=== PATIENT | female | born 1990 | race Caucasian/White ===

== ENCOUNTER → 2017-04-12 | Outpatient (CLI) | payer SELFPAY ==
[~2017-04-12] MED LIST: CATHETER FLUSH 10 ML SYR IV PRN; IOHEXOL 350 MG/ML 100 ML (OMNIPAQUE 350) VIAL IV ONE; NS 100 ML (IVPB) BAG IV ONE
--- NOTE | 2017-04-12 15:38 | Diagnostic Imaging Report ---
PROCEDURE: CT head with and without contrast. TECHNIQUE: Multiple contiguous axial images were obtained through the brain before and after the administration of intravenous contrast. INDICATION: Right vision loss. COMPARISON: There are no prior studies available for comparison. FINDINGS: There is no mass, shift of the midline, or hemorrhage to suggest an acute intracranial abnormality. There is no abnormal enhancement on the postcontrast series to indicate a neoplastic or infectious process either. There is no sign of an aneurysm of the [place], and there is no hemodynamically significant stenosis of the visualized intracranial arterial circulation. The ventricles are not abnormally dilated. The bone windows show no evidence for a fracture or for a destructive lesion. The orbits are symmetrical and within normal limits. The sinuses, where visualized, are generally clear. In the scalp overlying the left frontoparietal bone near the vertex of the skull, there is a 1.3 x 0.8 cm partially calcified soft tissue density. Most likely, this represents a sebaceous cyst. IMPRESSION: 1. There is no evidence for an acute intracranial abnormality. 2. There is no abnormal enhancement to suggest a neoplastic or infectious process. 3. There is no evidence for an aneurysm of the [place]. There is no hemodynamically significant stenosis identified either. Dictated on workstation # [id number]
== END ==
LOC: RAD 14:48
PROVIDERS: ATTEND Internal Medicine
DX: H93.01 Transient ischemic deafness (principal); H57.09 Other anomalies of pupillary function; H54.61 Unqualified visual loss, right eye, normal vision left eye
CPT/HCPCS: 70470

== ENCOUNTER 2017-06-01 14:35 | Emergency (ER) | payer OTHER ==
[~2017-06-01] VITALS: Ht 177.8 cm; Wt 81.6 kg
[2017-06-01 15:09] LABS: BASOPHILS # (AUTO) 0.2 10^3/uL (0.0-0.1); BASOPHILS % (AUTO) 2 % (0-10); EOSINOPHILS # (AUTO) 1.2 10^3/uL (0.0-0.3); EOSINOPHILS % (AUTO) 11 % (0-10); HEMATOCRIT 42 % (35-52); HEMOGLOBIN 14.6 G/DL (11.5-16.0); LYMPHOCYTES # (AUTO) 2.2 X 10^3 (1.0-4.0); LYMPHOCYTES % (AUTO) 20 % (12-44); MEAN CORPUSCULAR HEMOGLOBIN 30 PG (25-34); MEAN CORPUSCULAR HGB CONC 35 G/DL (32-36); MEAN CORPUSCULAR VOLUME 87 FL (80-99); MEAN PLATELET VOLUME 12.1 FL (7.4-10.4); MONOCYTES # (AUTO) 0.5 X 10^3 (0.0-1.0); MONOCYTES % (AUTO) 5 % (0-12); NEUTROPHILS # (AUTO) 6.6 X 10^3 (1.8-7.8); NEUTROPHILS % (AUTO) 63 % (42-75); PLATELET COUNT 193 10^3/uL (130-400); RED BLOOD COUNT 4.84 10^6/uL (4.35-5.85); WHITE BLOOD COUNT 10.6 10^3/uL (4.3-11.0)
[2017-06-01 15:23] LABS: INR 1.1 (0.8-1.4); PROTHROMBIN TIME PATIENT 13.8 SEC (12.2-14.7)
[2017-06-01 15:28] LABS: ALANINE AMINOTRANSFERASE 18 U/L (0-55); ALBUMIN 4.5 GM/DL (3.2-4.5); ALKALINE PHOSPHATASE 72 U/L (40-136); BILIRUBIN,TOTAL 0.5 MG/DL (0.1-1.0); BUN/CREATININE RATIO 13; CALCIUM 9.5 MG/DL (8.5-10.1); CARBON DIOXIDE 26 MMOL/L (21-32); CHLORIDE 106 MMOL/L (98-107); GFR ESTIMATED > 60; GLUCOSE 93 MG/DL (70-105); MAGNESIUM 2.1 MG/DL (1.8-2.4); POTASSIUM 3.5 MMOL/L (3.6-5.0); SODIUM 140 MMOL/L (135-145); TOTAL PROTEIN 7.3 GM/DL (6.4-8.2)
--- NOTE | 2017-06-01 15:36 | ED Cardiac General ---
History of Present Illness General Chief Complaint: Cardiac/General Problems Stated Complaint: HR 185 Nursing Triage Note: TO ROOM REPORTS FOR YEARS HAS HAD A FAST HR THAT WOULD COME AND GO. TODAY IT DID NOT GO AWAY. ON ADMIT MONITOR SVT RATE OF 160. Source: patient Exam Limitations: no limitations History of Present Illness Date Seen by Provider: Jun 01, 2017 Time Seen by Provider: 15:00 Initial Comments To ER with reports of heart rate 185 at home area and she felt poorly and checked her fit bit and noticed her heart beat to be in the 180s. She had a little shortness of breath. She states that she has intermittently had these sensations before but they usually resolve after a coughing fit but without other treatment after about 10 minutes. She's never had this evaluated. Severity: moderate NTG SL BATTERY HAND: No ASA po BATTERY HAND: No Associated Systoms: No Chest Pain; Cough; No Nausea/Vomiting Allergies and Home Medications Allergies Coded Allergies: No Allergy Information Available (Unverified , 04/12/17) Patient Home Medication List Home Medication List Reviewed: Yes Review of Systems Constitutional: see HPI EENTM: No Symptoms Reported Respiratory: No Symptoms Reported Cardiovascular: See HPI, Chest Pain Gastrointestinal: See HPI Genitourinary: No Symptoms Reported Musculoskeletal: no symptoms reported Skin: no symptoms reported Psychiatric/Neurological: No Symptoms Reported Endocrine: No Symptoms Reported Past Rltlyvt-Gzvwxz-Ytsfug Hx Patient Social History Alcohol Use: Occasionally Uses Recreational Drug Use: No Smoking Status: Never a Smoker Recent Foreign Travel: No Contact w/Someone Who Travel: No Recent Infectious Disease Expo: No Past Medical History Surgeries: Yes (SPINAL CORRECTION) Section, Gallbladder, Tonsillectomy Respiratory: No Cardiac: No Neurological: No Genitourinary: No Gastrointestinal: No Musculoskeletal: No Endocrine: No HEENT: No Cancer: No Psychosocial: No Integumentary: No Physical Exam Vital Signs Vital Signs - First Documented 06/01/17 14:35 Temp 98.0 Pulse 160 Resp 18 B/P (MAP) 120/43 (68) Pulse Ox 100 O2 Delivery Room Air Capillary Refill : Less Than 3 Seconds General Appearance: No Apparent Distress, WD/WN, Other (otherwise well- appearing but she is in fact tachycardic narrow complex with a rate of 150. Her blood pressure was 130/80. No ectopy. While starting IV she was asked to perform a Valsalva maneuver by attempting to blow the plunger out on a 10 cc syringe. Her heart rate went up to 210 and then converted to sinus rhythm at 85. ) HEENT: PERRL/EOMI, TMs Normal Neck: Full Range of Motion, Normal Inspection Respiratory: No Accessory Muscle Use, No Respiratory Distress Cardiovascular: Regular Rate, Rhythm, Normal Peripheral Pulses Gastrointestinal: Non Tender, Soft Neurologic/Psychiatric: Alert, Oriented x3 Skin: Normal Color, Warm/Dry Progress/Results/Core Measures Lab Results Laboratory Tests Test 06/01/17 15:02 06/01/17 16:00 Range/Units White Blood Count 10.6 4.3-11.0 10^3/uL Red Blood Count 4.84 4.35-5.85 10^6/uL Hemoglobin 14.6 11.5-16.0 G/DL Hematocrit 42 35-52 % Mean Corpuscular Volume 87 80-99 FL Mean Corpuscular Hemoglobin 30 25-34 PG Mean Corpuscular Hemoglobin Concent 35 32-36 G/DL Red Cell Distribution Width 12.0 10.0-14.5 % Platelet Count 193 130-400 10^3/uL Mean Platelet Volume 12.1 H 7.4-10.4 FL Neutrophils (%) (Auto) 63 42-75 % Lymphocytes (%) (Auto) 20 12-44 % Monocytes (%) (Auto) 5 0-12 % Eosinophils (%) (Auto) 11 H 0-10 % Basophils (%) (Auto) 2 0-10 % Neutrophils # (Auto) 6.6 1.8-7.8 X 10^3 Lymphocytes # (Auto) 2.2 1.0-4.0 X 10^3 Monocytes # (Auto) 0.5 0.0-1.0 X 10^3 Eosinophils # (Auto) 1.2 H 0.0-0.3 10^3/uL Basophils # (Auto) 0.2 H 0.0-0.1 10^3/uL Prothrombin Time 13.8 12.2-14.7 SEC INR Comment 1.1 0.8-1.4 Activated Partial Thromboplast Time 29 24-35 SEC D-Dimer 0.46 0.00-0.49 UG/ML Sodium Level 140 135-145 MMOL/L Potassium Level 3.5 L 3.6-5.0 MMOL/L Chloride Level 106 98-107 MMOL/L Carbon Dioxide Level 26 21-32 MMOL/L Anion Gap 8 5-14 MMOL/L Blood Urea Nitrogen 9 7-18 MG/DL Creatinine 0.70 0.60-1.30 MG/DL Estimat Glomerular Filtration Rate > 60 BUN/Creatinine Ratio 13 Glucose Level 93 70-105 MG/DL Calcium Level 9.5 8.5-10.1 MG/DL Magnesium Level 2.1 1.8-2.4 MG/DL Total Bilirubin 0.5 0.1-1.0 MG/DL Aspartate Amino Transf (AST/SGOT) 16 5-34 U/L Alanine Aminotransferase (ALT/SGPT) 18 0-55 U/L Alkaline Phosphatase 72 40-136 U/L Myoglobin 15.5 10.0-92.0 NG/ML Troponin I < 0.30 <0.30 NG/ML Total Protein 7.3 6.4-8.2 GM/DL Albumin 4.5 3.2-4.5 GM/DL Thyroid Stimulating Hormone (TSH) 1.50 0.35-4.94 UIU/ML Free Thyroxine 1.02 0.70-1.48 NG/DL Urine Color YELLOW Urine Clarity CLEAR Urine pH 7 5-9 Urine Specific [place] 1.010 L 1.016-1.022 Urine Protein NEGATIVE NEGATIVE Urine Glucose (UA) NEGATIVE NEGATIVE Urine Ketones NEGATIVE NEGATIVE Urine Nitrite NEGATIVE NEGATIVE Urine Bilirubin NEGATIVE NEGATIVE Urine Urobilinogen NORMAL NORMAL MG/DL Urine Leukocyte Esterase NEGATIVE NEGATIVE Urine RBC (Auto) NEGATIVE NEGATIVE Urine RBC NONE /HPF Urine WBC NONE /HPF Urine Squamous Epithelial Cells RARE /HPF Urine Crystals NONE /LPF Urine Bacteria NONE /HPF Urine Casts NONE /LPF Urine Mucus NEGATIVE /LPF Urine Culture Indicated NO Urine Opiates Screen NEGATIVE NEGATIVE Urine Oxycodone Screen NEGATIVE NEGATIVE Urine Methadone Screen NEGATIVE NEGATIVE Urine Propoxyphene Screen NEGATIVE NEGATIVE Urine Barbiturates Screen NEGATIVE NEGATIVE Ur Tricyclic Antidepressants Screen NEGATIVE NEGATIVE Urine Phencyclidine Screen NEGATIVE NEGATIVE Urine Amphetamines Screen NEGATIVE NEGATIVE Urine Methamphetamines Screen NEGATIVE NEGATIVE Urine Benzodiazepines Screen NEGATIVE NEGATIVE Urine Cocaine Screen NEGATIVE NEGATIVE Urine Cannabinoids Screen NEGATIVE NEGATIVE My Orders Orders - LOS BATES [employer]PORATE COMMUNICATIONS MANAGER Cbc With Automated Diff (06/01/17 14:53) Magnesium (06/01/17 14:53) Chest 1 View, Ap/Pa Only (06/01/17 14:53) Ekg Tracing (06/01/17 14:53) Cardiac Profile 1 (06/01/17 14:53) Comprehensive Metabolic Panel (06/01/17 14:53) Myoglobin Serum (06/01/17 14:53) Protime With Inr (06/01/17 14:53) Partial Thromboplastin Time (06/01/17 14:53) O2 (06/01/17 14:53) Monitor-Rhythm Ecg Trace Only (06/01/17 14:53) Saline Lock/Iv-Start (06/01/17 14:53) Thyroid Stimulating Hormone (06/01/17 15:01) Free T4 (Free Thyroxine) (06/01/17 15:01) Fibrin Degradation Products (06/01/17 15:01) Ekg Tracing (06/01/17 15:09) Ua Culture If Indicated (06/01/17 15:44) Urine Bedside (06/01/17 15:44) Drug Screen Stat (Urine) (06/01/17 15:44) Vital Signs/I&O 06/01/17 06/01/17 14:35 16:46 Temp 98.0 Pulse 160 90 Resp 18 18 B/P (MAP) 120/43 (68) 125/82 Pulse Ox 100 99 O2 Delivery Room Air Room Air Blood Pressure Mean: 68 Diagonstic Imaging: Xray Plain Films/CT/US/NM/MRI: chest Comments NAME: [facility] REC#: [id number] PT STATUS: REG ER : 1990 PHYSICIAN: LOS BATES APRN ADMIT DATE: 06/01/17/ER Draft Date of Exam:06/01/17 CHEST 1 VIEW, AP/PA ONLY INDICATION: Tachycardia. TECHNIQUE: Single view chest 3:15 PM. CORRELATION STUDY: None FINDINGS: Posterior fusion hardware including transpedicular screws, laminar hooks and cerclage wires are present. There is rightward curvature of the thoracic spine. This does result in obscuration and distortion of the chest anatomy. Given this, the heart size and vasculature appear unremarkable.. The lungs are clear with no consolidating infiltrate. There is no significant effusion or pneumothorax. IMPRESSION: 1. Extensive spinal fixation hardware. Negative for acute abnormality. Dictated on workstation # [id number] Dict: 06/01/17 1523 Trans: 06/01/[address] [facility] [place] [id number] Interpreted by: LEONARDO MATOS DO Electronically signed by: Departure Communication (Admissions) [id number], patient remains in normal sinus rhythm at 92 with a blood pressure of 128/ 79. Impression Primary Impression: Supraventricular tachycardia Disposition: 01 HOME, SELF-CARE Condition: Improved Departure-Patient Inst. Decision time for Depature: 15:35 Referrals: DANNI LEROY [facility]ACP [facility] Cj CALVILLO MD, BASHAR J MD NO,LOCAL PHYSICIAN (PCP) Primary Care Physician Patient Instructions: Paroxysmal Supraventricular Tachycardia (DC) Add. Discharge Instructions: 1. Return to the ER for any concerns 2. Call in the cardiologists listed for an appointment to be seen. All discharge instructions reviewed with patient and/or family. Voiced understanding. LOS BATES [employer]ATE COMMUNICATIONS MANAGER Jun 01, 2017 15:36
[2017-06-01 15:48] LABS: MYOGLOBIN SERUM 15.5 NG/ML (10.0-92.0)
--- NOTE | 2017-06-01 15:51 | Diagnostic Imaging Report ---
INDICATION: Tachycardia. TECHNIQUE: Single view chest 3:15 PM. CORRELATION STUDY: None FINDINGS: Posterior fusion hardware including transpedicular screws, laminar hooks and cerclage wires are present. There is rightward curvature of the thoracic spine. This does result in obscuration and distortion of the chest anatomy. Given this, the heart size and vasculature appear unremarkable.. The lungs are clear with no consolidating infiltrate. There is no significant effusion or pneumothorax. IMPRESSION: 1. Extensive spinal fixation hardware. Negative for acute abnormality. Dictated by: Dictated on workstation # [id number]
[2017-06-01 15:58] LABS: FREE T4 (FREE THYROXINE) 1.02 NG/DL (0.70-1.48)
[2017-06-01 16:08] LABS: BILIRUBIN,URINE NEGATIVE (NEGATIVE); CLARITY,URINE CLEAR; COLOR,URINE YELLOW; GLUCOSE, URINE (UA) NEGATIVE (NEGATIVE); KETONES,URINE NEGATIVE (NEGATIVE); LEUKOCYTE ESTERASE ,URINE NEGATIVE (NEGATIVE); NITRITE,URINE NEGATIVE (NEGATIVE); PH,URINE 7 (5-9); PROTEIN,URINE NEGATIVE (NEGATIVE); UROBILINOGEN,URINE NORMAL (NORMAL)
[2017-06-01 16:14] LABS: SQUAMOUS EPITHELIAL CELL,UR RARE /HPF
[2017-06-01 16:22] LABS: AMPHETAMINE SCREEN, URINE NEGATIVE (NEGATIVE); BARBITURATE SCREEN URINE NEGATIVE (NEGATIVE); BENZODIAZEPINES SCREEN URINE NEGATIVE (NEGATIVE); CANNABINOID SCREEN, URINE NEGATIVE (NEGATIVE); COCAINE SCREEN URINE NEGATIVE (NEGATIVE); METHADONE STAT NEGATIVE (NEGATIVE); METHAMPHETAMINE SCREEN URINE S NEGATIVE (NEGATIVE); OPIATE SCREEN URINE NEGATIVE (NEGATIVE); OXYCODONE STAT NEGATIVE (NEGATIVE); PROPOXYPHENE STAT NEGATIVE (NEGATIVE); TRICYCLIC ANTIDEPRESSANTS SCRE NEGATIVE (NEGATIVE)
[2017-06-01 16:46] VITALS: BP 125/82
== END 2017-06-01 16:43 | disposition home or self-care (01) ==
LOC: EDUNIT# 14:35 → ER 14:37
DX: I47.1 Supraventricular tachycardia (principal); Z87.59 Personal history of other complications of pregnancy, childbirth and the puerperium; Z90.89 Acquired absence of other organs; Z98.890 Other specified postprocedural states
CPT/HCPCS: 36415; 71045; 80053; 80306; 81000; 83735; 83874; 84439; 84443; 84484; 84703; 85025; 85379; 85610; 85730; 93005; 93041

== ENCOUNTER 2017-08-28 23:11 | Emergency (ER) | payer SELFPAY ==
[~2017-08-28] VITALS: Ht 177.8 cm; Wt 79.4 kg
[2017-08-29] MEDS ORDERED: TRIM/SULFAMETH 160/800 (SEPTRA DS) TAB PO STA (01:00)
[2017-08-29] MEDS ORDERED: IBUPROFEN 800 MG (MOTRIN) TAB PO STA (01:00)
[2017-08-29] MEDS ORDERED: DEXAMETHASONE 10 MG/ML (DECADRON) 1 ML VIAL IM STA (01:02)
--- NOTE | 2017-08-29 01:02 | ED Integumentary General ---
General Chief Complaint: Skin/Wound Problems Stated Complaint: POSS SPIDER BITE Nursing Triage Note: pt states left buttocks wound with redness Source: patient Exam Limitations: no limitations History of Present Illness Date Seen by Provider: Aug 29, 2017 Time Seen by Provider: 00:50 Initial Comments Here with complaint of swollen, red and hot area to the right buttock. States that she slept in a chair last night and she was wearing shorts. She believes this area may have been exposed. This may be an insect bite. She is not sure but does know that she did not have anything in the area yesterday. Denies fever or chills. Denies other wounds. Timing/Duration: this morning (18 hours ago) Severity: moderate Location: genitalia (right buttock) Possible Cause: insect bite Associated Symptoms: change in skin texture, edema; No fever, No rash; swelling /mass/lumps Allergies and Home Medications Allergies Coded Allergies: No Allergy Information Available (Unverified , 04/12/17) Patient Home Medication List Home Medication List Reviewed: Yes Constitutional: see HPI; No chills, No fever Respiratory: no symptoms reported Cardiovascular: no symptoms reported Skin: see HPI, change in color Past Ptjydri-Grolwu-Drzlnm Hx Past Med/Social Hx: Reviewed Nursing Past Med/Soc Hx Patient Social History Alcohol Use: Denies Use Recreational Drug Use: No Smoking Status: Never a Smoker Recent Foreign Travel: No Contact w/Someone Who Travel: No Recent Infectious Disease Expo: No Past Medical History Surgeries: Yes (SPINAL CORRECTION) Section, Gallbladder, Tonsillectomy Respiratory: No Cardiac: No Neurological: No Genitourinary: No Gastrointestinal: No Musculoskeletal: No Endocrine: No HEENT: No Cancer: No Psychosocial: No Integumentary: No Family Medical History Reviewed Nursing Family Hx Physical Exam Vital Signs Vital Signs - First Documented 08/28/17 23:36 Temp 98.4 Pulse 89 Resp 20 B/P (MAP) 140/93 (109) Pulse Ox 98 O2 Delivery Room Air Capillary Refill : Less Than 3 Seconds General Appearance: WD/WN, no apparent distress Cardiovascular: regular rate, rhythm, no murmur Respiratory: lungs clear, normal breath sounds Skin: warm/dry Skin Problem Location: other Skin Problem Character: erythema, lesion, tenderness, thickening, warm, other ( 10 x 10 cm area of induration with central area that appears to be insect bite or sting area. No fluctuance noted. Tenderness noted on palpation.) Progress/Results/Core Measures Results/Orders My Orders Orders - ANURADHA CISNEROS MD Ibuprofen Tablet (Motrin Tablet) (08/29/17 01:00) Sulfamethoxazole/Trimet Ds Tab (Bactrim (08/29/17 01:00) Vital Signs/I&O 08/28/17 23:36 Temp 98.4 Pulse 89 Resp 20 B/P (MAP) 140/93 (109) Pulse Ox 98 O2 Delivery Room Air Blood Pressure Mean: 109 Progress Progress Note : Progress Note Seen and evaluated. Wound appears to be related to insect bite or sting. Decadron 10 mg IM. Ibuprofen 800 mg by mouth. We will initiate Bactrim DS one tab by mouth now and continue it for 7 days. Patient encouraged to follow up with PCP. Return precautions given. Discharged home with return precautions. Patient verbalize understanding instructions and agreement with plan. Departure Impression Primary Impression: Insect bite or sting Disposition: HOME, SELF-CARE Condition: Stable Departure-Patient Inst. Decision time for Depature: 01:09 Referrals: NO,LOCAL PHYSICIAN (PCP/Family) Primary Care Physician Patient Instructions: Insect Bites and Stings (DC), Spider Bites Add. Discharge Instructions: All discharge instructions reviewed with patient and/or family. Voiced understanding. Take medications as directed. Follow-up with your DrManpreet in a few days for recheck. Return for worse pain, fever, vomiting, weakness, breathing problems or other concerns as needed. You may take ibuprofen 800 mg every 8 hours as needed for pain or fever. You may take Tylenol/acetaminophen 1000 mg every 8 hours as needed for fever or pain. Scripts Sulfamethoxazole/Trimethoprim (Sulfamethoxazole-Tmp Ds Tablet) 1 Each Tablet 1 EACH PO BID, #14 TAB 0 Refills Prov: ANURADHA CISNEROS MD 08/29/17 Work/School Note: [employer] Listing ANURADHA CISNEROS MD Aug 29, 2017 01:02
[2017-08-29] MEDS ORDERED: SULF-222 PO (01:12)
[2017-08-29 01:39] VITALS: BP 140/93
== END 2017-08-29 01:41 | disposition home or self-care (01) ==
LOC: EDUNIT# 23:11 → ER 23:13
DX: S30.860A Insect bite (nonvenomous) of lower back and pelvis, initial encounter (principal); Z87.59 Personal history of other complications of pregnancy, childbirth and the puerperium; Z90.89 Acquired absence of other organs; W57.XXXA Bitten or stung by nonvenomous insect and other nonvenomous arthropods, initial encounter
CPT/HCPCS: 96372; 99282

== ENCOUNTER 2019-10-31 22:15 | Emergency (ER) | payer MEDICAID, OTHER ==
[~2019-10-31] VITALS: Ht 180 cm; Wt 86.0 kg
[~2019-10-31 22:15] MED LIST changes: -CATHETER FLUSH 10 ML SYR IV PRN; -IOHEXOL 350 MG/ML 100 ML (OMNIPAQUE 350) VIAL IV ONE; -NS 100 ML (IVPB) BAG IV ONE; +SULF-222 PO
[2019-10-31] MEDS ORDERED: LACTATED RINGERS 1,000 ML IV ONE ×2 (22:22→23:34)
[2019-10-31 22:34] LABS: BASOPHILS % (AUTO) 0 % (0-10); EOSINOPHILS # (AUTO) 0.1 10^3/uL (0.0-0.3); EOSINOPHILS % (AUTO) 1 % (0-10); HEMATOCRIT 39 % (35-52); HEMOGLOBIN 13.7 G/DL (11.5-16.0); LYMPHOCYTES # (AUTO) 1.8 X 10^3 (1.0-4.0); LYMPHOCYTES % (AUTO) 22 % (12-44); MEAN CORPUSCULAR HEMOGLOBIN 30 PG (25-34); MEAN CORPUSCULAR HGB CONC 36 G/DL (32-36); MEAN CORPUSCULAR VOLUME 85 FL (80-99); MEAN PLATELET VOLUME 12.5 FL (7.4-10.4); MONOCYTES # (AUTO) 0.6 X 10^3 (0.0-1.0); MONOCYTES % (AUTO) 7 % (0-12); NEUTROPHILS # (AUTO) 5.8 X 10^3 (1.8-7.8); NEUTROPHILS % (AUTO) 70 % (42-75); PLATELET COUNT 173 10^3/uL (130-400); WHITE BLOOD COUNT 8.3 10^3/uL (4.3-11.0)
--- NOTE | 2019-10-31 22:34 | NUR ---
Pt reports that this is her 2nd and she has had n/v/d since finding out she was 4 wks ago. Pt states that she hasn't been able to keep solids or fluids down today. Pt states she thinks her s/s are related to an ovarian cyst because "for me pain presents as n/v/d".
[2019-10-31 22:43] LABS: ALBUMIN 4.3 GM/DL (3.2-4.5); CHLORIDE 106 MMOL/L (98-107); POTASSIUM 3.6 MMOL/L (3.6-5.0); SODIUM 137 MMOL/L (135-145)
[2019-10-31 22:44] LABS: CALCIUM 9.1 MG/DL (8.5-10.1)
[2019-10-31 22:45] LABS: GLUCOSE 84 MG/DL (70-105)
[2019-10-31 22:46] LABS: TOTAL PROTEIN 7.1 GM/DL (6.4-8.2)
[2019-10-31 22:47] LABS: CARBON DIOXIDE 19 MMOL/L (21-32)
[2019-10-31 22:49] LABS: ALKALINE PHOSPHATASE 42 U/L (40-136); CREATININE SERUM 0.63 MG/DL (0.60-1.30); GFR ESTIMATED > 60
[2019-10-31 22:50] LABS: BUN/CREATININE RATIO 8
[2019-10-31 22:52] LABS: ALANINE AMINOTRANSFERASE 14 U/L (0-55)
[2019-10-31 22:54] LABS: MAGNESIUM 1.9 MG/DL (1.6-2.4)
[2019-10-31] MEDS ORDERED: FAMOTIDINE 20MG/2ML IV (PEPCID) IVP ONE ×2 (23:00→23:15)
[2019-10-31] MEDS ORDERED: ANTACID SUSP 30 ML UDC (MYLANTA) PO ONE (23:00)
[2019-10-31] MEDS ORDERED: PROMETHAZINE INJ 25 MG/ML (PHENERGAN) AMP IVP ONE (23:00)
[2019-10-31] MEDS ORDERED: LIDOCAINE 2% VISCOUS 15 ML UDC PO ONE (23:00)
[2019-10-31 23:09] LABS: BILIRUBIN,URINE 1+ (NEGATIVE); CLARITY,URINE CLOUDY; COLOR,URINE AMBER; GLUCOSE, URINE (UA) NEGATIVE (NEGATIVE); KETONES,URINE 3+ (NEGATIVE); LEUKOCYTE ESTERASE ,URINE NEGATIVE (NEGATIVE); NITRITE,URINE NEGATIVE (NEGATIVE); PROTEIN,URINE NEGATIVE (NEGATIVE)
[2019-10-31 23:21] LABS: BACTERIA,URINE TRACE /HPF; WBC,URINE RARE /HPF
--- NOTE | 2019-10-31 23:33 | NUR ---
Warm blanket provided; pt reports nausea is only "slightly better".
--- NOTE | 2019-10-31 23:40 | NUR ---
Pt reports to ERP that she's feeling very restless. Orders received and given.
[2019-10-31] MEDS ORDERED: diphenhydrAMINE 50 MG/ML INJ (BENADRYL) IVP ONE (23:45)
[2019-11-01] MEDS ORDERED: ONDANSETRON 4 MG/2 ML (SDV) Z0FRAN IVP ONE (00:15)
--- NOTE | 2019-11-01 00:20 | ED GI ---
General Chief Complaint: Abdominal/GI Problems Stated Complaint: VOMITING;DIARRHEA;WEAKNESS; Nursing Triage Note: Pt here with n/v/d. Pt reports she is <12 wks and has been having n/v/d since finding out she is 4 wks ago. Sepsis Screen: No Definite Risk Source of Information: Patient Exam Limitations: No Limitations History of Present Illness Date Seen by Provider: Nov 01, 2019 Time Seen by Provider: 02:22 Initial Comments This 29-year-old 2 para 1 young lady in early first trimester presents emergency room with complaints of nausea, vomiting, diarrhea for a few weeks. She reports LMP consisted of spotting in August. Her last normal menstrual cycle was in July. She reports a small amount of dark discharge as well. She is afebrile. Allergies and Home Medications Allergies Coded Allergies: promethazine (Verified Adverse Reaction, Intermediate, irritability, 11/01/19) Home Medications Ondansetron 4 Mg Tab.rapdis, 4 MG SL Q4H PRN for NAUSEA/VOMITING Prescribed by: MARCO HINKLE on 11/01/19 0059 Sulfamethoxazole/Trimethoprim 1 Each Tablet, 1 EACH PO BID Prescribed by: ANURADHA CISNEROS on 08/29/17 0112 Patient Home Medication List Home Medication List Reviewed: Yes Review of Systems Review of Systems Constitutional: no symptoms reported EENTM: No Symptoms Reported Respiratory: No Symptoms Reported Cardiovascular: No Symptoms Reported Gastrointestinal: See HPI Genitourinary: See HPI Musculoskeletal: no symptoms reported Skin: no symptoms reported Psychiatric/Neurological: No Symptoms Reported Endocrine: No Symptoms Reported Hematologic/Lymphatic: No Symptoms Reported Past Upmxeqn-Clmuyz-Udmnxh Hx Past Med/Social Hx: Reviewed Nursing Past Med/Soc Hx Patient Social History Alcohol Use: Denies Use Recreational Drug Use: No Smoking Status: Never a Smoker Recent Foreign Travel: No Contact w/Someone Who Travel: No Recent Infectious Disease Expo: No Past Medical History Surgeries: Yes (SPINAL CORRECTION) Section, Gallbladder, Tonsillectomy Respiratory: No Cardiac: No Neurological: No Last Menstrual Period: Sep 09, 2019 Hx : 2 Hx Para: 1 Genitourinary: No Gastrointestinal: No Musculoskeletal: No Endocrine: No HEENT: No Cancer: No Psychosocial: No Integumentary: No Physical Exam Vital Signs Vital Signs - First Documented 10/31/19 22:25 Temp 37.2 Pulse 92 Resp 18 B/P (MAP) 126/73 (90) Pulse Ox 98 O2 Delivery Room Air Capillary Refill : Less Than 3 Seconds Height/Weight/BMI Height: 5'10.00" Weight: 175lbs. oz. 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, no motor/sensory deficits, alert, normal mood/affect, oriented x 3 Skin: normal color, warm/dry Progress/Results/Core Measures Results/Orders Lab Results Laboratory Tests Test 10/31/19 22:25 10/31/19 22:57 Range/Units White Blood Count 8.3 4.3-11.0 10^3/uL Red Blood Count 4.55 4.35-5.85 10^6/uL Hemoglobin 13.7 11.5-16.0 G/DL Hematocrit 39 35-52 % Mean Corpuscular Volume 85 80-99 FL Mean Corpuscular Hemoglobin 30 25-34 PG Mean Corpuscular Hemoglobin Concent 36 32-36 G/DL Red Cell Distribution Width 12.1 10.0-14.5 % Platelet Count 173 130-400 10^3/uL Mean Platelet Volume 12.5 H 7.4-10.4 FL Neutrophils (%) (Auto) 70 42-75 % Lymphocytes (%) (Auto) 22 12-44 % Monocytes (%) (Auto) 7 0-12 % Eosinophils (%) (Auto) 1 0-10 % Basophils (%) (Auto) 0 0-10 % Neutrophils # (Auto) 5.8 1.8-7.8 X 10^3 Lymphocytes # (Auto) 1.8 1.0-4.0 X 10^3 Monocytes # (Auto) 0.6 0.0-1.0 X 10^3 Eosinophils # (Auto) 0.1 0.0-0.3 10^3/uL Basophils # (Auto) 0.0 0.0-0.1 10^3/uL Sodium Level 137 135-145 MMOL/L Potassium Level 3.6 3.6-5.0 MMOL/L Chloride Level 106 98-107 MMOL/L Carbon Dioxide Level 19 L 21-32 MMOL/L Anion Gap 12 5-14 MMOL/L Blood Urea Nitrogen 5 L 7-18 MG/DL Creatinine 0.63 0.60-1.30 MG/DL Estimat Glomerular Filtration Rate > 60 BUN/Creatinine Ratio 8 Glucose Level 84 70-105 MG/DL Calcium Level 9.1 8.5-10.1 MG/DL Corrected Calcium 8.9 8.5-10.1 MG/DL Magnesium Level 1.9 1.6-2.4 MG/DL Total Bilirubin 1.0 0.1-1.0 MG/DL Aspartate Amino Transf (AST/SGOT) 16 5-34 U/L Alanine Aminotransferase (ALT/SGPT) 14 0-55 U/L Alkaline Phosphatase 42 40-136 U/L Total Protein 7.1 6.4-8.2 GM/DL Albumin 4.3 3.2-4.5 GM/DL Human Chorionic Gonadotropin, Quant [id number] H <5 MIU/ML Urine Color LEAH H Urine Clarity CLOUDY Urine pH 7.0 5-9 Urine Specific [place] 1.025 H 1.016-1.022 Urine Protein NEGATIVE NEGATIVE Urine Glucose (UA) NEGATIVE NEGATIVE Urine Ketones 3+ H NEGATIVE Urine Nitrite NEGATIVE NEGATIVE Urine Bilirubin 1+ H NEGATIVE Urine Urobilinogen 1.0 < = 1.0 MG/DL Urine Leukocyte Esterase NEGATIVE NEGATIVE Urine RBC (Auto) NEGATIVE NEGATIVE Urine RBC NONE /HPF Urine WBC RARE /HPF Urine Squamous Epithelial Cells 5-10 /HPF Urine Crystals PRESENT H /LPF Urine Bacteria TRACE /HPF Urine Casts NONE /LPF Urine Mucus LARGE H /LPF Urine Culture Indicated NO My Orders Orders - MARCO BUTLER MD Ed Iv/Invasive Line Start (10/31/19 22:22) Lactated Ringers (Lr 1000 Ml Iv Solution (10/31/19 22:22) Cbc With Automated Diff (10/31/19 22:22) Comprehensive Metabolic Panel (10/31/19 22:22) Magnesium (10/31/19 22:22) Ua Culture If Indicated (10/31/19 22:22) Hcg,Quantitative (10/31/19 22:40) Promethazine Injection (Phenergan Injec (10/31/19 23:00) Famotidine Injection (Pepcid Injection) (10/31/19 23:00) Lidocaine 2% Viscous 15 Ml (Xylocaine Vi (10/31/19 23:00) Antacid Suspension (Mylanta Suspension (10/31/19 23:00) Famotidine Injection (Pepcid Injection) (10/31/19 23:15) Lactated Ringers (Lr 1000 Ml Iv Solution (10/31/19 23:34) Diphenhydramine Injection (Benadryl Inje (10/31/19 23:45) Ondansetron Injection (Zofran Injectio (11/01/19 00:15) Medications Given in ED Current Medications Medications Dose Ordered Sig/Selvin Route Start Time Stop Time Status Last Admin Dose Admin Diphenhydramine HCl 25 mg ONCE ONCE IVP 10/31/19 23:45 10/31/19 23:46 DC 10/31/19 23:42 25 MG Famotidine 20 mg ONCE ONCE IVP 10/31/19 23:00 10/31/19 23:05 DC 10/31/19 22:59 20 MG Lactated Ringer's 1,000 ml @ 0 mls/hr Q0M ONCE IV 10/31/19 22:22 10/31/19 22:24 DC 10/31/19 22:37 1,000 MLS/HR Lactated Ringer's 1,000 ml @ 0 mls/hr Q0M ONCE IV 10/31/19 23:34 10/31/19 23:35 DC 10/31/19 23:42 1,000 MLS/HR Ondansetron HCl 4 mg ONCE ONCE IVP 11/01/19 00:15 11/01/19 00:16 DC 11/01/19 00:11 4 MG Promethazine HCl 25 mg ONCE ONCE IVP 10/31/19 23:00 10/31/19 23:01 DC 10/31/19 23:01 25 MG Vital Signs/I&O 10/31/19 11/01/19 22:25 00:59 Temp 37.2 Pulse 92 87 Resp 18 18 B/P (MAP) 126/73 (90) 120/55 Pulse Ox 98 97 O2 Delivery Room Air Room Air 11/01/19 00:00 Intake Total 1000 ml Balance 1000 ml Blood Pressure Mean: 90 Progress Progress Note : Time: 00:19 Progress Note Patient was hydrated with a liter of LR. A second liter has been ordered due to significant ketones found in the urine. Nausea was treated with Phenergan. Unfortunately, patient feels a bit agitated and fidgety on the Phenergan. Benadryl has been ordered and was given. Patient still feels nauseous despite Phenergan. Zofran is being added to her treatment. Pepcid was also given. Lab work was otherwise unremarkable. Departure Impression Primary Impression: Nausea vomiting and diarrhea Additional Impression: Qualified Codes: Z34.90 - Encounter for supervision of normal , unspecified, unspecified trimester Disposition: HOME, SELF-CARE Condition: Improved Departure-Patient Inst. Decision time for Depature: 00:49 Referrals: NO,LOCAL PHYSICIAN (PCP/Family) Primary Care Physician Patient Instructions: Nausea and Vomiting, Adult Add. Discharge Instructions: Start with a clear liquid diet and gradually advance your diet with small quantities of bland food as tolerated. Avoid fatty or greasy foods or dairy products until diarrhea has resolved for a couple of days. Unisom (doxylamine) purchased [id number] is effective in reducing nausea throughout the day when it is taken at bedtime. You may add an [id number]-[id number] vitamin B 6 supplement as well to further prevent nausea in . You may further use Zofran (ondansetron) for uncontrolled nausea. Follow-up with Dr. Lyon as soon as possible. Call when the clinic opens for follow-up. All discharge instructions reviewed with patient and/or family. Voiced understanding. Scripts Ondansetron (Ondansetron Odt) 4 Mg Tab.rapdis 4 MG SL Q4H PRN for NAUSEA/VOMITING, #10 TAB Prov: MARCO BUTLER MD 11/01/19 Copy Copies To 1: CHIP LYON MD, JOSHUA T MD Nov 01, 2019 00:20
--- NOTE | 2019-11-01 00:28 | NUR ---
Pt up to restroom without incident.
[2019-11-01 00:59] VITALS: BP 120/55
[2019-11-01] MEDS ORDERED: ONDA4TAB11 SL (00:59)
== END 2019-11-01 00:59 | disposition home or self-care (01) ==
LOC: EDUNIT# 22:15 → ER 22:16
DX: O21.9 Vomiting of pregnancy, unspecified (principal); O26.891 Other specified pregnancy related conditions, first trimester; R19.7 Diarrhea, unspecified; Z3A.00 Weeks of gestation of pregnancy not specified; Z88.8 Allergy status to other drugs, medicaments and biological substances
CPT/HCPCS: 36415; 80053; 81000; 83735; 84702; 85025

== ENCOUNTER 2020-03-13 12:34 | Outpatient (CLI) | payer MEDICAID ==
[~2020-03-13 12:34] MED LIST changes: +ONDA4TAB11 SL
--- NOTE | 2020-03-13 12:50 | NUR ---
Arrived to unit ambulates self from ED. To room 314. Gowned and urine sample obtained. pt c/o "nausea and vomitted x1 this am with quarter size amt of bright red blood in emesis. pt reports continued nausea and states "I have had nausea and vomitting problems the whole , my superiors freaked out and told me I needed to come get checked out.
[2020-03-13 13:04] VITALS: BP 122/72
[2020-03-13 13:20] LABS: BILIRUBIN,URINE NEGATIVE (NEGATIVE); CLARITY,URINE CLEAR; COLOR,URINE YELLOW; GLUCOSE, URINE (UA) NEGATIVE (NEGATIVE); KETONES,URINE NEGATIVE (NEGATIVE); LEUKOCYTE ESTERASE ,URINE NEGATIVE (NEGATIVE); NITRITE,URINE NEGATIVE (NEGATIVE); PROTEIN,URINE NEGATIVE (NEGATIVE)
[2020-03-13 13:28] LABS: BACTERIA,URINE LARGE /HPF; SQUAMOUS EPITHELIAL CELL,UR 25-50 /HPF
--- NOTE | 2020-03-13 13:30 | NUR ---
plan of care reviewed with pt. assessment.
[2020-03-13 13:38] VITALS: BP 122/72
--- NOTE | 2020-03-13 14:04 | NUR ---
Dr Ching notified of pt arrival, gestation, c/o, assessment, no emesis since arrival. new orders received and plan of care reviewed with pt.
--- NOTE | 2020-03-13 14:06 | NUR ---
Pt off monitor and up to get dressed.
[2020-03-13] MEDS ORDERED: PREN-37 PO (14:08)
[2020-03-13] MEDS ORDERED: OMEP40CA27 PO (14:11)
--- NOTE | 2020-03-13 14:23 | NUR ---
Discharge instructions explained and signed, copy to patient. pt verbalized understanding.
--- NOTE | 2020-03-13 14:25 | NUR ---
Discharged to home. Ambulates self off unit with belongings in hand and to private vehicle.
--- NOTE | 2020-03-13 14:54 | NUR ---
prescrition called to pharmacy
--- NOTE | 2020-03-14 07:56 | Physician Query-Final Dx ---
Clinic Account Progress/Dx Physician Query: Please give diagnosis Please include # weeks gestation Date of Service Mar 13, 2020 at 12:34 NITIN BAEZ Mar 14, 2020 07:56
== END 2020-03-13 14:25 | disposition home or self-care (01) ==
LOC: WSo 12:34 → LDRP 12:34 → WSo 14:25
PROVIDERS: ATTEND Family Medicine
DX: O21.8 Other vomiting complicating pregnancy (principal); Z3A.27 27 weeks gestation of pregnancy
CPT/HCPCS: 81000; 87088

== ENCOUNTER 2020-04-19 16:25 | Emergency (ER) | payer MEDICAID ==
[~2020-04-19] VITALS: Ht 177 cm; Wt 90.0 kg
[~2020-04-19 16:25] MED LIST changes: +OMEP40CA27 PO; +PREN-37 PO
[2020-04-19 16:35] VITALS: BP 142/87
--- NOTE | 2020-04-19 16:46 | ED Integumentary General ---
General Chief Complaint: Skin/Wound Problems Stated Complaint: PAIN/CYST ON HEAD Source: patient Exam Limitations: no limitations History of Present Illness Date Seen by Provider: Apr 19, 2020 Time Seen by Provider: 16:34 Initial Comments Patient presents ER by private conveyance with chief complaint last couple days has had increased swelling pain related to an inclusion cyst on the left parietal scalp. She is had it for over 10 years she has 2 others and has been told in the past are benign. There is the first time it swollen up. She happened to be 32 weeks . No other significant medical history. Allergies and Home Medications Allergies Coded Allergies: promethazine (Verified Adverse Reaction, Intermediate, irritability, 11/01/19) Home Medications Omeprazole 40 Mg Capsule.dr, 40 MG PO DAILY Prescribed by: NORMA HUGO on 03/13/20 1411 Ondansetron 4 Mg Tab.rapdis, 4 MG SL Q4H PRN for NAUSEA/VOMITING Prescribed by: MARCO HINKLE on 11/01/19 0059 Vit/Iron Fumarate/FA 1 Each Tablet, 1 EACH PO DAILY, (Reported) Patient Home Medication List Home Medication List Reviewed: Yes Review of Systems Review of Systems Constitutional: No chills, No diaphoresis EENTM: No ear discharge, No ear pain Respiratory: No cough, No short of breath Cardiovascular: No Hx of Intervention, No palpitations Gastrointestinal: No abdominal pain, No nausea : Yes Musculoskeletal: No back pain, No joint pain Psychiatric/Neurological: See HPI All Other Systems Reviewed Negative Unless Noted: Yes Past Ckhmvne-Zxopdm-Udsjes Hx Patient Social History Alcohol Use: Denies Use Smoking Status: Never a Smoker 2nd Hand Smoke Exposure: No Past Medical History Surgeries: Yes (SPINAL CORRECTION) Section, Gallbladder, Tonsillectomy Respiratory: No Cardiac: No Neurological: No Genitourinary: No Gastrointestinal: No Musculoskeletal: No Endocrine: No HEENT: No Cancer: No Psychosocial: No Integumentary: No Physical Exam Vital Signs Vital Signs - First Documented 04/19/20 16:35 Temp 35.8 Pulse 83 Resp 16 B/P (MAP) 142/87 (105) Pulse Ox 98 O2 Delivery Room Air Capillary Refill : General Appearance: WD/WN, no apparent distress HEENT: PERRL/EOMI, pharynx normal Neck: full range of motion, normal inspection Cardiovascular: normal peripheral pulses, regular rate, rhythm Respiratory: no respiratory distress, no accessory muscle use Skin: other (Erythematous swollen epidermal inclusion cyst left parietal scalp that is tender to palpation. Approximately 3 x 4 cm) Procedures/Interventions I&D : Site: Left parietal scalp Blade Size: 11 I & D Procedure: betadine prep (Chlorhexidine) Progress Wound was infiltrated with 2 cc of 1% lidocaine and when she was appropriately anesthetized we made a crosswise incision using 11 blade scalpel. We expressed about 30 cc of caseous nonmalodorous substance. Using a sterile tipped cotton swab we are able to remove some of the lining and flush the wound. We will put a gauze dressing over it. Progress/Results/Core Measures Results/Orders Vital Signs/I&O 04/19/20 16:35 Temp 35.8 Pulse 83 Resp 16 B/P (MAP) 142/87 (105) Pulse Ox 98 O2 Delivery Room Air Departure Impression Primary Impression: Epidermal inclusion cyst Disposition: HOME, SELF-CARE Condition: Improved Departure-Patient Inst. Decision time for Depature: 17:06 Referrals: NO,LOCAL PHYSICIAN (PCP/Family) Primary Care Physician Patient Instructions: Epidermal Cyst (DC) Add. Discharge Instructions: Keep the wound clean with regular soap and water or shampoo. Do not plug the wound. Gauze over the wound to catch the drainage is okay. Open to air is okay. Should seal up over the next 2 days and resolve over the next week or 2. If you are having fever or increasing redness and swelling then it needs to be reexamined by physician. Tylenol 1000 mg every 8 hours as necessary for pain. Ice applied 20 minutes every 2 hours as necessary for pain. All discharge instructions reviewed with patient and/or family. Voiced understanding. [place] ULLOA Apr 19, 2020 16:46
== END 2020-04-19 17:18 | disposition home or self-care (01) ==
LOC: EDUNIT# 16:25 → ER 16:29
DX: L72.0 Epidermal cyst (principal); Z88.8 Allergy status to other drugs, medicaments and biological substances
CPT/HCPCS: 10061

== ENCOUNTER 2020-05-13 01:32 | Outpatient (CLI) | payer MEDICAID ==
[~2020-05-13] VITALS: Ht 177.8 cm; Wt 91.8 kg
[2020-05-13 02:03] LABS: BILIRUBIN,URINE NEGATIVE (NEGATIVE); CLARITY,URINE CLEAR; COLOR,URINE YELLOW; GLUCOSE, URINE (UA) NEGATIVE (NEGATIVE); KETONES,URINE NEGATIVE (NEGATIVE); LEUKOCYTE ESTERASE ,URINE NEGATIVE (NEGATIVE); NITRITE,URINE NEGATIVE (NEGATIVE); PROTEIN,URINE NEGATIVE (NEGATIVE)
[2020-05-13 02:04] VITALS: BP 130/75
[2020-05-13 02:15] LABS: BACTERIA,URINE FEW /HPF
[2020-05-13] MEDS ORDERED: TERBUTALINE INJ 1 MG/ML (BRETHINE) AMP ONE (03:03)
[2020-05-13] MEDS ORDERED: TERBUTALINE INJ 1 MG/ML (BRETHINE) AMP SC ONE (03:15)
--- NOTE | 2020-05-14 08:03 | Physician Query-Final Dx ---
NITIN BAEZ 05/14/20 0803: Clinic Account Progress/Dx Physician Query: Please give diagnosis Please include # weeks gestation Date of Service May 13, 2020 at 01:32 SHERYL MADDEN MD 05/14/20 1239: Clinic Account Progress/Dx DIAGNOSIS: Diagnosis 36 weeks gestation Contractions without active labor NITIN BAEZ May 14, 2020 08:03 SHERYL MADDEN MD May 14, 2020 12:39
== END 2020-05-13 03:45 | disposition home or self-care (01) ==
LOC: LDRP 01:32 → WSo 01:32
PROVIDERS: ATTEND Family Medicine
DX: O60.03 Preterm labor without delivery, third trimester (principal); Z3A.36 36 weeks gestation of pregnancy
CPT/HCPCS: 81000; 87088; 99214

== ENCOUNTER 2020-05-17 13:46 | Outpatient (CLI) | payer MEDICAID ==
[~2020-05-17] VITALS: Ht 177.8 cm; Wt 91.4 kg
[2020-05-17 14:03] VITALS: BP 113/69
[2020-05-17 14:07] VITALS: BP 119/69
[2020-05-17 14:21] LABS: BILIRUBIN,URINE NEGATIVE (NEGATIVE); CLARITY,URINE CLEAR; COLOR,URINE YELLOW; GLUCOSE, URINE (UA) NEGATIVE (NEGATIVE); KETONES,URINE TRACE (NEGATIVE); LEUKOCYTE ESTERASE ,URINE NEGATIVE (NEGATIVE); NITRITE,URINE NEGATIVE (NEGATIVE); PROTEIN,URINE NEGATIVE (NEGATIVE)
[2020-05-17 14:28] LABS: AMORPHOUS SEDIMENT,UR MOD AMOR URATES /LPF; BACTERIA,URINE MODERATE /HPF
--- NOTE | 2020-05-20 07:52 | Physician Query-Final Dx ---
Clinic Account Progress/Dx Physician Query: Please give diagnosis Please include # weeks gestation Date of Service May 17, 2020 at 13:46 NITIN BAEZ May 20, 2020 07:52
== END 2020-05-17 15:15 ==
LOC: WSo 13:46 → LDRP 13:47 → WSo 15:15
PROVIDERS: ATTEND Family Medicine
DX: O62.4 Hypertonic, incoordinate, and prolonged uterine contractions (principal); Z3A.36 36 weeks gestation of pregnancy
CPT/HCPCS: 81000; 87088; 99213

== ENCOUNTER 2022-05-27 00:52 | Emergency (ER) | payer MEDICAID ==
[~2022-05-27] VITALS: Ht 177 cm; Wt 190.0 kg
[~2022-05-27 00:52] MED LIST changes: -OMEP40CA27 PO; +OMEP40CA6 PO
[2022-05-27] MEDS ORDERED: KETOROLAC 30 MG/ML VIAL IVP ONE (01:15)
[2022-05-27] MEDS ORDERED: ORPHENADRINE 60 MG/2 ML (NORFLEX) AMP (ED ONLY) IV ONE (01:15)
--- NOTE | 2022-05-27 01:45 | ED Back Pain ---
General Chief Complaint: Back Problems Stated Complaint: BACK PAIN Nursing Triage Note: PATIENT COMPLAINT OF BACK PAIN STARTING 1630, STATES STARTED WITH A "TWINGE" AND NOW IS UNABLE TO BEND/AMBULATION WITH OUT PAIN. Source of Information: Patient Exam Limitations: No Limitations History of Present Illness Date Seen by Provider: May 27, 2022 Time Seen by Provider: 01:05 Initial Comments This 31-year-old young lady presents to the emergency room with complaints of central lumbar back pain that has been escalating since about 1630. She was doing laundry at the time of onset. She has some minor tingling down both thighs but no major radiculopathy. She has not urinated since 1629 but does not describe any bowel or bladder dysfunction. She reports the pain has become "disabling". She is still ambulatory. She took naproxen this morning as is her usual routine for treatment of scoliosis. She also took a cyclobenzaprine this afternoon. She has not taken any other medication for pain since onset at 1630. She denies any prior occurrence. There was no traumatic injury. She denies as she has just finished her menstrual cycle. Allergies and Home Medications Allergies Coded Allergies: promethazine (Verified Adverse Reaction, Intermediate, irritability, 10/16 08/04) Patient Home Medication List Home Medication List Reviewed: Yes Ondansetron (Ondansetron Odt) 4 Mg Tab.rapdis, 4 MG SL Q4H PRN for NAUSEA/VOMITING Prescribed by: MARCO HINKLE on 11/01/19 0059 Prednisone (Prednisone) 20 Mg Tab, 40 MG PO DAILY Prescribed by: MARCO HINKLE on 05/27/22 0220 Vit/Iron Fumarate/FA ( Tablet) 1 Each Tablet, 1 EACH PO DAILY, (Reported) Entered as Reported by: NORMA HUGO on 03/13/20 1408 Review of Systems Constitutional: no symptoms reported EENTM: no symptoms reported Respiratory: no symptoms reported Gastrointestinal: no symptoms reported Genitourinary: no symptoms reported : No Musculoskeletal: see HPI Skin: no symptoms reported Psychiatric/Neurological: See HPI Past Vtmcxgd-Emeunu-Sisgik Hx Patient Social History Tobacco Use?: No Use of E-Cig and/or Vaping dev: No Substance use?: No Alcohol Use?: Yes Alcohol Frequency: Once in a while Immunizations Up To Date First/Initial COVID19 Vaccinat: 2020 COVID19 Vaccine Software Test Specialist: DELIA Past Medical History Surgery/Hospitalization HX: SCOLIOSIS, CORRECTION SURGERY 2007 Surgeries: Yes (SPINAL CORRECTION) Section, Gallbladder, Orthopedic (Back surgery with Lanza rods), Tonsillectomy Respiratory: No Cardiac: No Neurological: No : No Genitourinary: No Gastrointestinal: No Musculoskeletal: No Endocrine: No HEENT: No Cancer: No Psychosocial: No Integumentary: No Physical Exam Vital Signs Vital Signs - First Documented 05/27/22 01:00 Temp 36.3 Pulse 90 Resp 20 B/P (MAP) 136/85 (102) Pulse Ox 98 O2 Delivery Room Air Capillary Refill : Less Than 3 Seconds Height, Weight, BMI Height: 5'10.00" Weight: 175lbs. oz. 79.621917al; 60.00 BMI Method:Estimated General Appearance: WD/WN, Mild Distress HEENT: Normal ENT Inspection Neck: Normal Inspection Cardiovascular: Regular Rate, Rhythm, No Edema, No Murmur Respiratory: Lungs Clear, Normal Breath Sounds, No Accessory Muscle Use Gastrointestinal: Non Tender, Soft Back: Normal Inspection, No Vertebral Tenderness Extremity: Normal Inspection, No Pedal Edema Neurologic/Psychiatric: Alert, Oriented x3, No Motor/Sensory Deficits, Normal Mood/Affect Skin: Normal Color, Warm/Dry Progress/Results/Core Measures Results/Orders Lab Results Laboratory Tests Test 05/27/22 01:43 Range/Units Urine Color YELLOW Urine Clarity CLEAR Urine pH 6.5 5-9 Urine Specific [place] 1.020 1.016-1.022 Urine Protein NEGATIVE NEGATIVE Urine Glucose (UA) NEGATIVE NEGATIVE Urine Ketones NEGATIVE NEGATIVE Urine Nitrite NEGATIVE NEGATIVE Urine Bilirubin NEGATIVE NEGATIVE Urine Urobilinogen 1.0 < = 1.0 MG/DL Urine Leukocyte Esterase NEGATIVE NEGATIVE Urine RBC (Auto) NEGATIVE NEGATIVE Urine RBC NONE /HPF Urine WBC NONE /HPF Urine Crystals NONE /LPF Urine Bacteria TRACE /HPF Urine Casts NONE /LPF Urine Mucus NEGATIVE /LPF Urine Culture Indicated NO My Orders Orders - MARCO BUTLER MD Orphenadrine Inj (Ed Only) (Norflex Inje (05/27/22 01:15) Ketorolac Injection (Toradol Injection) (05/27/22 01:15) Ed Iv/Invasive Line Start (05/27/22 01:12) Ua Culture If Indicated (05/27/22 01:12) Urine Bedside (05/27/22 01:45) Methylprednisolone Sod Succ (Solu-Medrol (05/27/22 02:30) Medications Given in ED Current Medications Medications Dose Ordered Sig/Selvin Route Start Time Stop Time Status Last Admin Dose Admin Ketorolac Tromethamine 30 mg ONCE ONCE IVP 05/27/22 01:15 05/27/22 01:16 DC 05/27/22 01:23 30 MG Methylprednisolone Sodium Succinate 125 mg ONCE ONCE IVP 05/27/22 02:30 05/27/22 02:31 DC 05/27/22 02:27 125 MG Orphenadrine Citrate 60 mg ONCE ONCE IV 05/27/22 01:15 05/27/22 01:16 DC 05/27/22 01:24 60 MG Vital Signs/I&O 05/27/22 05/27/22 01:00 02:30 Temp 36.3 36.3 Pulse 90 90 Resp 20 20 B/P (MAP) 136/85 (102) 136/85 Pulse Ox 98 98 O2 Delivery Room Air Room Air Blood Pressure Mean: 102 Progress Progress Note : Progress Note Patient was treated with Norflex and Toradol. Urinalysis was evaluated and was unremarkable. Patient had moderate improvement with these medications. She was offered other pain medication such as hydrocodone or Ultram. She declines these medications stating they are not very effective for her. Steroid therapy was discussed and she requested a dose of steroids. Solu-Medrol was given for initial steroid therapy in the ER. Departure Impression Primary Impression: Low back pain Qualified Codes: M54.42 - Lumbago with sciatica, left side; M54.41 - Lumbago with sciatica, right side Disposition: 01 HOME, SELF-CARE Condition: Improved Departure-Patient Inst. Decision time for Depature: 02:20 Referrals: NO,LOCAL PHYSICIAN (PCP/Family) Primary Care Physician Patient Instructions: Low Back Pain in Adults Add. Discharge Instructions: You may continue taking naproxen up to 500 mg twice daily for primary pain management. Add Tylenol (acetaminophen) up to 1000 mg every 6 hours as needed for additional pain relief. If you have muscle spasms or tension, you may use the cyclobenzaprine as previously prescribed. Gentle heat may help alleviate pain and muscle spasms as well. Complete the prednisone as prescribed. Prednisone is best taken early in the day to avoid sleep disturbance and with food or milk to avoid stomach upset. Follow-up with your primary care provider to discuss further treatment and management of pain. Return to the ER if you have worsening symptoms, especially if you have escalating pain not responding to medication, bowel or bladder dysfunction, true muscle weakness or paralysis in the legs, or numbness in the groin. All discharge instructions reviewed with patient and/or family. Voiced understanding. Scripts Prednisone (Prednisone) 20 Mg Tab 40 MG PO DAILY, #8 TAB 0 Refills Prov: MARCO BUTLER MD 05/27/22 MARCO BUTLER MD May 27, 2022 01:45
[2022-05-27 01:51] LABS: BILIRUBIN,URINE NEGATIVE (NEGATIVE); CLARITY,URINE CLEAR; COLOR,URINE YELLOW; GLUCOSE, URINE (UA) NEGATIVE (NEGATIVE); KETONES,URINE NEGATIVE (NEGATIVE); LEUKOCYTE ESTERASE ,URINE NEGATIVE (NEGATIVE); NITRITE,URINE NEGATIVE (NEGATIVE); PH,URINE 6.5 (5-9); PROTEIN,URINE NEGATIVE (NEGATIVE)
[2022-05-27 02:03] LABS: BACTERIA,URINE TRACE /HPF
[2022-05-27] MEDS ORDERED: PRD20T PO (02:20)
[2022-05-27 02:30] VITALS: BP 136/85
[2022-05-27] MEDS ORDERED: methylPREDNISolone 125 MG (Solu-MEDROL) VIAL IVP ONE (02:30)
== END 2022-05-27 01:20 | disposition home or self-care (01) ==
LOC: EDUNIT# 00:52 → ER 00:56
DX: M54.50 Low back pain, unspecified (principal); M41.9 Scoliosis, unspecified; Z28.311 Partially vaccinated for COVID-19
CPT/HCPCS: 81000; 84703